=== PATIENT | female | born 1950 | race Hispanic/Latino ===

== ENCOUNTER 2017-12-08 13:28 | Inpatient (IN) | payer MEDICARE ==
[~2017-12-08] VITALS: Ht 154.9 cm; Wt 81.1 kg
[2017-12-08 14:52] LABS: BASOPHILS % (AUTO) 0.3 % (0.0-5.0); EOSINOPHILS % (AUTO) 0.1 % (0.0-8.0); HEMATOCRIT 31.7 % (36-48); LYMPHOCYTES % (AUTO) 5.8 % (21.0-51.0); MEAN CORPUSCULAR HEMOGLOBIN 29.4 pg (27.0-33.0); MEAN CORPUSCULAR HGB CONC 34.1 g/dL (32.0-36.0); MEAN CORPUSCULAR VOLUME 86.2 fL (79-99); MONOCYTES % (AUTO) 6.4 % (3.0-13.0); NEUTROPHILS % (AUTO) 87.4 % (40.0-77.0); PLATELET COUNT (AUTO) 287 K/uL (130-400); RED BLOOD CELL COUNT(AUTO) 3.69 MIL/uL (4.00-5.50); RED CELL DISTRIBUTION WIDTH 14.5 % (11.0-15.5); WHITE BLOOD COUNT (AUTO) 12.5 K/uL (4.8-10.8)
[2017-12-08 15:00] LABS: INR 0.93 (0.85-1.15); PARTIAL THROMBOPLASTIN TIME 26.4 SEC (26.3-35.5); PROTHROMBIN TIME 9.8 SEC (9.6-11.6)
[2017-12-08 15:02] LABS: CREATININE 1.4 mg/dL (0.5-1.5); POTASSIUM 4.5 mmol/L (3.5-5.1)
[2017-12-08 15:15] LABS: ALBUMIN 3.1 g/dL (3.5-5.0); BILIRUBIN,TOTAL 0.3 mg/dL (0.2-1.0); CREATINE KINASE MB 2.1 ng/mL (0.5-3.6); TOTAL PROTEIN, SERUM 7.6 g/dL (6.0-8.3)
[2017-12-08 16:02] LABS: APPEARANCE,URINE Cloudy (CLEAR); BILIRUBIN,URINE Negative (NEGATIVE); COLOR,URINE Yellow (YELLOW); GLUCOSE, URINE (UA) Negative (NEGATIVE); KETONES,URINE Trace mg/dL (NEGATIVE); LEUKOCYTE ESTERASE ,URINE Moderate (NEGATIVE); NITRATE,URINE Negative (NEGATIVE); OCCULT BLOOD,URINE Trace (NEGATIVE); PROTEIN,URINE 300 (NEGATIVE); UROBILINOGEN,URINE 0.2 mg/dL (0.2-1.0)
[2017-12-08 16:08] LABS: RBC,URINE None Seen /HPF (0-1)
[2017-12-08 16:09] LABS: BACTERIA,URINE Many /HPF (None Seen)
[2017-12-08 16:10] LABS: AMORPHOUS SEDIMENT,UR Few /LPF (None Seen)
[2017-12-08] MEDS ORDERED: ZIPRASIDONE MESYLATE 20 MG/VIAL IM ONE ×2 (16:15→18:01)
[2017-12-08] MEDS ORDERED: SODIUM CHLORIDE 0.9% 1000ML 0 ML IV ONE (18:53)
[2017-12-08] MEDS ORDERED: HEPARIN SODIUM 5000UNIT/ML 1ML VIAL SQ SCH (21:00)
[2017-12-08] MEDS ORDERED: GLUCAGON 1MG KIT 1 MG ML IM PRN (22:00)
[2017-12-08] MEDS ORDERED: DEXTROSE 50%-WATER 50 ML DISP.SYRIN IV PRN (22:00)
[2017-12-09] MEDS ORDERED: SODIUM CHLORIDE 0.9% 1000ML 1,000 ML IV ONE (03:22)
[2017-12-09] MEDS ORDERED: HEPARIN SODIUM 5000UNIT/ML 1ML VIAL ONE ×3 (03:22→23:46)
[2017-12-09 04:36] LABS: HEMATOCRIT 28.8 % (36-48); MEAN CORPUSCULAR HEMOGLOBIN 29.2 pg (27.0-33.0); MEAN CORPUSCULAR HGB CONC 33.8 g/dL (32.0-36.0); MEAN CORPUSCULAR VOLUME 86.4 fL (79-99); PLATELET COUNT (AUTO) 283 K/uL (130-400); RED BLOOD CELL COUNT(AUTO) 3.33 MIL/uL (4.00-5.50); RED CELL DISTRIBUTION WIDTH 14.2 % (11.0-15.5); WHITE BLOOD COUNT (AUTO) 9.7 K/uL (4.8-10.8)
[2017-12-09 05:06] LABS: CREATININE 1.7 mg/dL (0.5-1.5); POTASSIUM 4.4 mmol/L (3.5-5.1); THYROID STIMULATING HORMONE 4.52 uIU/mL (0.36-3.74)
[2017-12-09 05:55] LABS: BASOPHILS % (AUTO) 0.6 % (0.0-5.0); EOSINOPHILS % (AUTO) 0.6 % (0.0-8.0); LYMPHOCYTES % (AUTO) 19.1 % (21.0-51.0); MEAN CORPUSCULAR HEMOGLOBIN 28.5 pg (27.0-33.0); MEAN CORPUSCULAR VOLUME 86.6 fL (79-99); NEUTROPHILS % (AUTO) 68.7 % (40.0-77.0); PLATELET COUNT (AUTO) 274 K/uL (130-400); RED BLOOD CELL COUNT(AUTO) 3.35 MIL/uL (4.00-5.50); RED CELL DISTRIBUTION WIDTH 14.3 % (11.0-15.5); WHITE BLOOD COUNT (AUTO) 9.7 K/uL (4.8-10.8)
[2017-12-09 06:04] LABS: CREATININE 1.7 mg/dL (0.5-1.5); POTASSIUM 4.4 mmol/L (3.5-5.1)
[2017-12-09 06:09] LABS: ALANINE AMINOTRANSFERASE 14 U/L (12-78); ALBUMIN 2.8 g/dL (3.5-5.0); ASPARTATE AMINOTRANSFERASE 23 U/L (10-37); BILIRUBIN,DIRECT < 0.1 mg/dL (0.0-0.3); BILIRUBIN,TOTAL 0.1 mg/dL (0.2-1.0); TOTAL PROTEIN, SERUM 6.8 g/dL (6.0-8.3)
[2017-12-09 06:19] LABS: THYROID STIMULATING HORMONE 4.09 uIU/mL (0.36-3.74)
[2017-12-09] MEDS ORDERED: PANTOPRAZOLE SODIUM 40 MG TABLET.DR PO ONE (08:44)
[2017-12-09] MEDS ORDERED: GADOBENATE DIMEGLUMINE 20 ML IV ONE (09:58)
[2017-12-09] MEDS ORDERED: CEFTRIAXONE SODIUM 1 GM IVP SCH (12:15)
[2017-12-09] MEDS ORDERED: CEFTRIAXONE 1GM/D5W 50ML 50 ML IV SCH (12:15)
[2017-12-09] MEDS ORDERED: ASPIRIN 81MG TAB.CHEW ONE (12:46)
[2017-12-09] MEDS ORDERED: CLOPIDOGREL BISULFATE 75 MG TAB ONE (12:47)
[2017-12-09] MEDS ORDERED: GABAPENTIN 300 MG CAPSULE ONE ×2 (12:47→23:47)
[2017-12-09] MEDS ORDERED: SPIR25TA PO (13:27)
[2017-12-09] MEDS ORDERED: ASPI-1197 PO (13:27)
[2017-12-09] MEDS ORDERED: CLOP75TA32 PO (13:27)
[2017-12-09] MEDS ORDERED: CALC-724 PO (13:27)
[2017-12-09] MEDS ORDERED: SMZ/TMP PO (13:27)
[2017-12-09] MEDS ORDERED: SIMV40TA5 PO (13:27)
[2017-12-09] MEDS ORDERED: CILO50TA PO (13:27)
[2017-12-09] MEDS ORDERED: LOSA100T29 PO (13:27)
[2017-12-09] MEDS ORDERED: ESCI10TA54 PO (13:27)
[2017-12-09] MEDS ORDERED: GABA-531 PO (13:27)
[2017-12-09] MEDS ORDERED: FERR325T22 PO (13:27)
[2017-12-09] MEDS ORDERED: AMLO5TAB2 PO (13:27)
[2017-12-09] MEDS ORDERED: FURO40TA5 PO (13:27)
[2017-12-09] MEDS ORDERED: INSU100I21 SQ (13:27)
[2017-12-09] MEDS ORDERED: ACETAMINOPHEN 325 MG TAB ONE (21:25)
[2017-12-10 06:13] LABS: HEMATOCRIT 26.6 % (36-48); MEAN CORPUSCULAR HEMOGLOBIN 29.7 pg (27.0-33.0); MEAN CORPUSCULAR HGB CONC 34.5 g/dL (32.0-36.0); MEAN CORPUSCULAR VOLUME 86.2 fL (79-99); PLATELET COUNT (AUTO) 242 K/uL (130-400); RED BLOOD CELL COUNT(AUTO) 3.08 MIL/uL (4.00-5.50); RED CELL DISTRIBUTION WIDTH 14.2 % (11.0-15.5); WHITE BLOOD COUNT (AUTO) 7.5 K/uL (4.8-10.8)
[2017-12-10 06:26] LABS: CREATININE 1.5 mg/dL (0.5-1.5); MAGNESIUM 2.1 mg/dL (1.80-2.40); POTASSIUM 4.4 mmol/L (3.5-5.1)
[2017-12-10] MEDS: ASPIRIN 81MG TAB.CHEW PO SCH (09:00)
[2017-12-10] MEDS: CITALOPRAM 20 MG TABLET PO SCH (09:00)
[2017-12-10] MEDS: AMLODIPINE BESYLATE 5 MG TAB PO SCH (09:00)
[2017-12-10] MEDS: GABAPENTIN 300 MG CAPSULE PO SCH ×2 (09:00→20:16)
[2017-12-10] MEDS: CILOSTAZOL 100 MG TAB PO SCH (09:00)
[2017-12-10] MEDS: LOSARTAN 100 MG TABLET PO SCH (09:00)
[2017-12-10] MEDS: CLOPIDOGREL BISULFATE 75 MG TAB PO SCH (09:00)
[2017-12-10] MEDS: INSULIN GLARGINE 100 UNITS/ML 10 ML VIAL SQ SCH (09:00)
[2017-12-10] MEDS: SPIRONOLACTONE 25 MG TAB PO SCH (09:00)
[2017-12-10] MEDS: PANTOPRAZOLE SODIUM 40 MG TABLET.DR PO SCH (09:00)
[2017-12-10] MEDS: CALCIUM 600 + VITAMIN D 400 TABLET PO SCH ×2 (09:00→20:15)
[2017-12-10] MEDS: FUROSEMIDE 40 MG TABLET PO SCH (09:00)
[2017-12-10] MEDS: FERROUS SULFATE 325 MG TABLET.DR PO SCH (09:00)
[2017-12-10] MEDS ORDERED: SODIUM CHLORIDE 0.9% 100 ML IV ONE (09:17)
[2017-12-10] MEDS ORDERED: CEFTRIAXONE SODIUM 1 GM ONE (09:17)
[2017-12-10] MEDS: SODIUM CHLORIDE 0.9% 1000ML 1,000 ML IV SCH ×2 (12:20→12:55)
[2017-12-10] MEDS: LEVOFLOXACIN 500 MG/D5W 100 ML 100 ML IV SCH (12:55)
[2017-12-10 13:01] VITALS: BP 141/68
[2017-12-10 16:00] VITALS: BP 154/67
[2017-12-10 19:05] VITALS: BP 163/71
[2017-12-10] MEDS: ATORVASTATIN CALCIUM 20 MG TABLET PO SCH ×2 (20:16→20:21)
[2017-12-10] MEDS: ACETAMINOPHEN 325 MG TAB PO PRN (22:37)
[2017-12-10 23:05] VITALS: BP 157/71
[2017-12-11] MEDS: SODIUM CHLORIDE 0.9% 1000ML 1,000 ML IV SCH ×3 (00:42→23:40)
[2017-12-11 03:05] VITALS: BP 159/68
[2017-12-11 05:19] LABS: HEMATOCRIT 27.2 % (36-48); MEAN CORPUSCULAR HEMOGLOBIN 28.3 pg (27.0-33.0); MEAN CORPUSCULAR VOLUME 85.9 fL (79-99); PLATELET COUNT (AUTO) 259 K/uL (130-400); RED BLOOD CELL COUNT(AUTO) 3.16 MIL/uL (4.00-5.50); RED CELL DISTRIBUTION WIDTH 14.3 % (11.0-15.5); WHITE BLOOD COUNT (AUTO) 8.3 K/uL (4.8-10.8)
[2017-12-11 05:36] LABS: CREATININE 0.9 mg/dL (0.5-1.5); POTASSIUM 4.1 mmol/L (3.5-5.1)
[2017-12-11] MEDS: ACETAMINOPHEN 325 MG TAB PO PRN (07:29)
[2017-12-11 08:00] VITALS: BP 160/65
[2017-12-11] MEDS: AMLODIPINE BESYLATE 5 MG TAB PO SCH (08:42)
[2017-12-11] MEDS: CITALOPRAM 20 MG TABLET PO SCH (08:43)
[2017-12-11] MEDS: FUROSEMIDE 40 MG TABLET PO SCH (08:43)
[2017-12-11] MEDS: PANTOPRAZOLE SODIUM 40 MG TABLET.DR PO SCH (08:43)
[2017-12-11] MEDS: CALCIUM 600 + VITAMIN D 400 TABLET PO SCH ×2 (08:43→23:00)
[2017-12-11] MEDS: SPIRONOLACTONE 25 MG TAB PO SCH (08:44)
[2017-12-11] MEDS: CLOPIDOGREL BISULFATE 75 MG TAB PO SCH (08:44)
[2017-12-11] MEDS: ASPIRIN 81MG TAB.CHEW PO SCH (08:44)
[2017-12-11] MEDS: GABAPENTIN 300 MG CAPSULE PO SCH ×2 (08:45→23:02)
[2017-12-11] MEDS: LOSARTAN 100 MG TABLET PO SCH (08:45)
[2017-12-11] MEDS: CILOSTAZOL 100 MG TAB PO SCH (08:46)
[2017-12-11] MEDS: FERROUS SULFATE 325 MG TABLET.DR PO SCH (08:46)
[2017-12-11] MEDS: INSULIN GLARGINE 100 UNITS/ML 10 ML VIAL SQ SCH (08:47)
[2017-12-11 11:00] VITALS: BP 155/67
[2017-12-11] MEDS ORDERED: LEVO500T2 PO (12:11)
[2017-12-11] MEDS ORDERED: AMLO10TA2 PO (12:11)
[2017-12-11] MEDS: LEVOFLOXACIN 500 MG/D5W 100 ML 100 ML IV SCH (14:44)
[2017-12-11 16:00] VITALS: BP 147/67
[2017-12-11 19:00] VITALS: BP 154/59
[2017-12-11] MEDS ORDERED: DEXTROSE 50%-WATER 50 ML DISP.SYRIN IV PRN (20:15)
[2017-12-11] MEDS ORDERED: GLUCAGON 1MG KIT 1 MG ML IM PRN (20:15)
[2017-12-11] MEDS: INSULIN HUMULIN R 100 UNIT/ML 3ML SQ SCH (21:00)
[2017-12-11 23:00] VITALS: BP 150/63
[2017-12-11] MEDS: ATORVASTATIN CALCIUM 20 MG TABLET PO SCH (23:00)
[2017-12-12] MEDS ORDERED: LORAZEPAM 0.5 MG TABLET PO ONE (01:00)
[2017-12-12] MEDS ORDERED: LORAZEPAM 0.5 MG TABLET ONE (01:03)
[2017-12-12 03:00] VITALS: BP 136/67
[2017-12-12] MEDS: INSULIN HUMULIN R 100 UNIT/ML 3ML SQ SCH ×3 (05:47→16:30)
[2017-12-12 08:00] VITALS: BP 153/69
[2017-12-12] MEDS ORDERED: FAMOTIDINE 20MG TAB 20 MG TAB PO SCH (09:00)
[2017-12-12] MEDS: LOSARTAN 100 MG TABLET PO SCH (10:08)
[2017-12-12] MEDS: CILOSTAZOL 100 MG TAB PO SCH (10:08)
[2017-12-12] MEDS: FERROUS SULFATE 325 MG TABLET.DR PO SCH (10:09)
[2017-12-12] MEDS: CALCIUM 600 + VITAMIN D 400 TABLET PO SCH (10:09)
[2017-12-12] MEDS: CITALOPRAM 20 MG TABLET PO SCH (10:09)
[2017-12-12] MEDS: PANTOPRAZOLE SODIUM 40 MG TABLET.DR PO SCH (10:09)
[2017-12-12] MEDS: CLOPIDOGREL BISULFATE 75 MG TAB PO SCH (10:09)
[2017-12-12] MEDS: AMLODIPINE BESYLATE 5 MG TAB PO SCH (10:09)
[2017-12-12] MEDS: SPIRONOLACTONE 25 MG TAB PO SCH (10:09)
[2017-12-12] MEDS: ASPIRIN 81MG TAB.CHEW PO SCH (10:09)
[2017-12-12] MEDS: FUROSEMIDE 40 MG TABLET PO SCH (10:09)
[2017-12-12] MEDS: GABAPENTIN 300 MG CAPSULE PO SCH (10:09)
[2017-12-12 11:00] VITALS: BP 124/60
[2017-12-12] MEDS: LEVOFLOXACIN 500 MG/D5W 100 ML 100 ML IV SCH (12:11)
[2017-12-12] MEDS: ACETAMINOPHEN 325 MG TAB PO PRN (12:12)
[2017-12-12] MEDS: SODIUM CHLORIDE 0.9% 1000ML 1,000 ML IV SCH (12:14)
[2017-12-12] MEDS: INSULIN GLARGINE 100 UNITS/ML 10 ML VIAL SQ SCH (12:17)
[2017-12-12 16:00] VITALS: BP 105/51
== END 2017-12-12 20:15 | disposition home or self-care (01) | DRG 552 ==
LOC: EDH 13:28 → OBSVTOIN 20:20 → EDHIP 20:20 → 4CH 12-10 11:25
PROVIDERS: ADMIT Family Medicine; ATTEND Family Medicine
DX: M54.16 Radiculopathy, lumbar region (principal); E11.40 Type 2 diabetes mellitus with diabetic neuropathy, unspecified; I69.351 Hemiplegia and hemiparesis following cerebral infarction affecting right dominant side; N39.0 Urinary tract infection, site not specified; W19.XXXA Unspecified fall, initial encounter; E66.01 Morbid (severe) obesity due to excess calories; D50.9 Iron deficiency anemia, unspecified; E55.9 Vitamin D deficiency, unspecified; E78.5 Hyperlipidemia, unspecified; F32.9 Major depressive disorder, single episode, unspecified; I10 Essential (primary) hypertension; X50.0XXA Overexertion from strenuous movement or load, initial encounter; Y93.F2 Activity, caregiving, lifting; Y99.0 Civilian activity done for income or pay; Z90.49 Acquired absence of other specified parts of digestive tract; Y92.89 Other specified places as the place of occurrence of the external cause; Z68.33 Body mass index [BMI] 33.0-33.9, adult; Z82.3 Family history of stroke; Z82.49 Family history of ischemic heart disease and other diseases of the circulatory system
CPT/HCPCS: 36415; 70547; 70551; 71045; 72148; 80048; 80053; 80076; 81001; 82550; 82553; 82948; 83735; 83874; 84443; 84484; 85025; 85027; 85610; 85651; 85730; 87088; 87186; 93005; 93306; 97039; A9577; J0696; J1644; J1956; J3486; J7030

== ENCOUNTER → 2018-07-26 | Outpatient (CLI) | payer OTHER ==
[~2018-07-26] MED LIST: AMLO10TA6 PO; ASPI-1197 PO; CALC-724 PO; CILO50TA PO; CLOP75TA32 PO; ESCI10TA54 PO; FERR325T22 PO; FURO40TA5 PO; GABA-531 PO; INSU100I21 SQ; LEVO500T2 PO; LOSA100T20 PO; SIMV40TA5 PO; SPIR25TA PO
== END | disposition home or self-care (01) ==
LOC: RAH 12:50
PROVIDERS: ATTEND Internal Medicine
DX: Z12.31 Encounter for screening mammogram for malignant neoplasm of breast (principal); R92.8 Other abnormal and inconclusive findings on diagnostic imaging of breast
CPT/HCPCS: 77067

== ENCOUNTER → 2019-07-27 | Outpatient (CLI) | payer OTHER ==
[~2019-07-27] MED LIST changes: -AMLO10TA6 PO; +AMLO10TA7 PO; -LOSA100T20 PO; +LOSA100T58 PO; +SIMV-46 PO; -SIMV40TA5 PO
== END | disposition home or self-care (01) ==
LOC: RAH 08:21
PROVIDERS: ATTEND Internal Medicine
DX: Z12.31 Encounter for screening mammogram for malignant neoplasm of breast (principal)
CPT/HCPCS: 77067

== ENCOUNTER → 2022-07-30 | Outpatient (CLI) | payer OTHER ==
[~2022-07-30] MED LIST changes: +AMLO-258 PO; -AMLO10TA7 PO; +CALC-1158 PO; -CALC-724 PO; -CILO50TA PO; +CILO50TA2 PO; +ESCI-8 PO; -ESCI10TA54 PO
== END | disposition home or self-care (01) ==
LOC: RAH 09:59
PROVIDERS: ATTEND Internal Medicine
DX: Z12.31 Encounter for screening mammogram for malignant neoplasm of breast (principal)
CPT/HCPCS: 77067

== ENCOUNTER → 2023-08-03 | Outpatient (CLI) | payer OTHER ==
[~2023-08-03] MED LIST changes: -INSU100I21 SQ; +INSU100I22 SQ; -LOSA100T58 PO; +LOSA100T59 PO
== END | disposition home or self-care (01) ==
LOC: RAH 08:25
PROVIDERS: ATTEND Internal Medicine
DX: Z12.31 Encounter for screening mammogram for malignant neoplasm of breast (principal)
CPT/HCPCS: 77067

== ENCOUNTER → 2024-08-04 | Outpatient (CLI) | payer OTHER ==
--- NOTE | 2024-08-04 11:54 | HMCIMG ---
SCREENING MAMMOGRAM REASON: Annual Exam COMPARISON: 08/03/2023 TECHNIQUE: CC and MLO views of the bilateral breasts were performed.CAD was performed as well. FINDINGS: Parenchymal density: There are scattered areas of fibroglandular density. There are no focal mass lesions. There are some coarse benign-appearing constellations right breast typical of a calcifying fibroadenomas, these appear unchanged. There are no pathologic appearing calcifications. There is no evidence of architectural distortion or skin thickening. IMPRESSION: Stable screening mammogram The patient was entered into a reminder system with a target due date for their next mammogram. BI-RADS CATEGORY 2: BENIGN FINDINGS Recommend monthly self breast exam as well as annual clinical examination. A negative x-ray should not delay biopsy if a dominant or clinically suspicious mass is present, since 8-10% of cancers are not identified by mammography. Dense breasts particularly, may obscure an underlying neoplasm. Some of these may be detected clinically and therefore, clinical examination is an essential part of breast evaluation.
== END | disposition home or self-care (01) ==
LOC: RAH 09:13
PROVIDERS: ATTEND Internal Medicine
DX: Z12.31 Encounter for screening mammogram for malignant neoplasm of breast (principal); R92.323 Mammographic fibroglandular density, bilateral breasts
CPT/HCPCS: 77067

== ENCOUNTER → 2025-08-07 | Outpatient (CLI) | payer OTHER ==
--- NOTE | 2025-08-08 15:31 | HMCIMG ---
DIGITAL BILATERAL SCREENING MAMMOGRAM Technique: The digital mammographic examination of both breasts in craniocaudal and mediolateral oblique views along with CAD was obtained. History: This is a 75 years year-old female 3, para3 Ab0. Patient has no family history of breast cancer. Patient has no complaint Reference:Prior mammogram from 08/04/2024, 08/03/2023, 07/30/2022, 07/29/2021 and 07/27/2020 are available for comparison. Breast composition: Breast composition B: There are scattered areas of fibroglandular density. Finding: The digital mammographic examination of both breasts in craniocaudal and mediolateral oblique view along with CAD demonstrates both breasts to BE mildly heterogeneously dense. There are multiple large dystrophic macrocalcification in the right breast which was seen before suggesting a degenerating fibroadenoma. There is benign vascular calcification suggesting of atherosclerotic changes.. There is no evidence of any dendritic mass, cluster microcalcification or architectural distortion. The retromammary fat appears to be normal. IMPRESSION: Unchanged from prior mammography. NO RADIOGRAPHIC EVIDENCE OF MALIGNANT CHANGES. WE WOULD RECOMMEND ANNUAL FOLLOW UP WITH TOMOSYNTHESIS UNLESS OTHERWISE CLINICALLY INDICATED. FINAL ASSESSMENT: ACR: BI-RAD- 2. Benign Finding. NOTE: IF A WORK-UP OF THIS PATIENT LEADS TO A BIOPSY, PLEASE FORWARD A COPY OF THE PATHOLOGY REPORT TO OUR OFFICE REQUIRED BY [employer] E[employer]ECTIVE JUNE 21, 1994. A NEGATIVE MAMMOGRAM SHOULD NOT PRECLUDE BIOPSY OF A CLINICALLY PALPABLE SUSPICIOUS MASS, 10% OF BREAST CANCERS ARE MAMMOGRAPHICALLY OCCULT. THIS MAMMOGRAPHY FACILITY IS FULLY ACCREDITED BY THE [employer] (FDA). THANK YOU FOR THIS REFERRAL.
== END | disposition home or self-care (01) ==
LOC: RAH 09:40
PROVIDERS: ATTEND Internal Medicine
DX: Z12.31 Encounter for screening mammogram for malignant neoplasm of breast (principal); R92.333 Mammographic heterogeneous density, bilateral breasts
CPT/HCPCS: 77067